=== PATIENT | male | born 1930 | race Caucasian/White ===

== ENCOUNTER 2017-02-17 14:08 | Inpatient (IN) ==
--- NOTE | 2017-02-17 15:38 | Emergency Department Note ---
Arrival - Arrival ED Nursing Triage Note: Sent from Dr Doan office for chest pain and SOB - pt states that he went to see Dr Doan for SOB and cough this am and was sent to ER for futher evaluation Mode of Arrival: Wheelchair Limitations: No Limitations Source: Patient, RN Notes Reviewed <Daryl Fall - Last Filed: 02/17/17 15:40> <Anuj Salazar - Last Filed: 02/17/17 17:12> - Arrival Chief Complaint: Shortness of Breath Stated Complaint: SOB,clammy, chest tightness Time Seen by Provider: 02/17/17 15:27 - History of Present Illness HPI Narrative: Patient is an 86-year-old white male routinely followed by Dr. Doan who is seen today with a two-month history of shortness of breath which is worse over the last 24-48 hours. The patient states she has had some wheezing. He denies any history of cigarette smoking. There is no history of fever. The patient was seen today at Dr. Doan's office and was noted to be somewhat diaphoretic. Patient's cough is nonproductive. He states that he was treated here 4-5 months ago as if he had congestive heart failure. He has noted some swelling in his legs. Patient has some dyspnea on exertion. (Daryl Fall) Allergies/Adverse Reactions: Allergies Allergy/AdvReac Type Severity Reaction Status Date / Time lidocaine Allergy Severe Unknown/Unable Verified 04/15/16 14:17 to obtain Home Medications: Home Medications Medication Instructions Recorded Confirmed Type Digoxin 125 mcg PO QAM 06/10/15 02/17/17 History Irbesartan 150 mg PO QAM 06/10/15 02/17/17 History Simvastatin 80 mg PO BEDTIME 06/10/15 02/17/17 History Zolpidem [Ambien] 5 mg PO BEDTIME PRN 06/10/15 02/17/17 History Rivaroxaban [Xarelto] 15 mg PO DAILY W/BREAKFAST tablet 06/12/15 02/17/17 Rx Silodosin [Rapaflo] 8 mg PO DAILY W/BREAKFAST PRN #0 06/12/15 02/17/17 Rx capsule Aspirin [Ecotrin] 81 mg PO QAM 04/15/16 02/17/17 History Finasteride 5 mg PO QPM 04/15/16 02/17/17 History Citalopram [CeleXA] 20 mg PO QAM 02/17/17 02/17/17 History Furosemide Tab [Lasix Tab] 40 mg PO MOWEFR 02/17/17 02/17/17 History Potassium Chloride Cap/Tab [K Dur] 10 meq PO MOWEFR 02/17/17 02/17/17 History Sotalol [Betapace] 160 mg PO BID 02/17/17 02/17/17 History Review of System - Review of System 12 point system: reviewed and no additional remarkable complaints except as stated - Review of System Constitutional: Present: diaphoresis. Absent: chills, fever Respiratory: Present: cough, wheezing. Absent: respiratory distress Gastrointestinal: Absent: nausea, vomiting <Daryl Fall - Last Filed: 02/17/17 15:40> Medical,Surgical,& Family Hx - Medical History Cardio: History of: Cardiac Dysrhythmia, CHF, CAD, Hypertension, Pacemaker, Cardiovascular Problems Psychological: History of: Anxiety Disorders Neurology: No history of: Cerebrovascular Accident HEENT: History of: HEENT Problems (carcinoma removed off nose years ago) Respiratory: History of: Bronchitis, Pneumonia, Respiratory Problems Genitourinary: History of: Kidney Stones, Problems Gastrointestinal: History of: GERD Musculoskeletal: History of: Degenerative Disk Disease, Musculoskeletal Problems Hematology: History of: Bleeding Problems (anticoagulated ) - Surgical History Cardiac Surgeries: Sugical HX of: Cardiac Catheterization, Cardiac Surgery ( bypass surgery in 2004. At that time he had a left internal mammary to the) Orthopedic Surgeries: Surgical HX of;: Orthopedic Surgery (knee surgery) - Family History Family History: Reports;: Family Cancer (children) - Social History Smoking Status: Never smoker Frequency of Alcohol Use: None Type of Drug Use: None <Daryl Fall - Last Filed: 02/17/17 15:40> Exam <Daryl Fall - Last Filed: 02/17/17 15:40> <Anuj Salazar - Last Filed: 02/17/17 17:12> Vital Signs: Vital Signs Temperature 98.6 F 02/17/17 15:30 Pulse Rate 60 02/17/17 16:00 Respiratory Rate 20 02/17/17 16:00 Blood Pressure 123/66 02/17/17 16:00 O2 Sat by Pulse Oximetry 100 02/17/17 16:00 GENERAL: This is a well-nourished well-developed white male in no apparent distress. VITAL SIGNS: Reviewed HEENT: Head is atraumatic and normocephalic. Pupils are equal round react to light. Extraocular movements are intact. Oropharynx is benign with moist mucous membranes. NECK: Neck is soft and supple without tenderness. There are no masses. There is no lymphadenopathy. LUNGS: End expiratory wheezes in the posterior lung viveros bilaterally but left is worse than right. Chest rises symmetrically. There is no chest wall tenderness. CV: Heart is regular rate and rhythm without murmurs rubs or gallops. ABDOMEN: Abdomen is soft, nontender to palpation. There are no abdominal abnormal masses palpated. There is no organomegaly. Bowel sounds are present and active. SKIN: Skin is cool and moist. No rash. EXTREMITIES: Patient has full range of motion without tenderness. There is 1+ pitting pedal edema. NEUROLOGIC: Awake alert and oriented 4. Cranial nerves II through XII are grossly intact. Motor is 5 over 5 in all extremities bilaterally. (Daryl Fall) Course <Daryl Fall - Last Filed: 02/17/17 15:40> <Anuj Salazar - Last Filed: 02/17/17 17:12> Course Narrative: Care transferred to Dr. Salazar at 1600. (Daryl Fall) Results - EKG EKG results: interpreted by ERMD - Diagnostic Findings Procedure: Chest x-ray: image reviewed by me <Daryl Fall - Last Filed: 02/17/17 15:40> - Labs CBC & BMP: 02/17/17 15:37 02/17/17 15:37 Lab Results: I have reviewed the patients labs <Anuj Salazar - Last Filed: 02/17/17 17:12> - Impressions EKG: Electronic atrial pacemaker with a rate of 64, incomplete right bundle branch block, normal ST-T waves, normal axis. (Daryl Fall) Disposition <Daryl Fall - Last Filed: 02/17/17 15:40> Case discussed with: patient, patient's family Time of Disposition: 17:12 <Anuj Salazar - Last Filed: 02/17/17 17:12> Clinical Impression: Dyspnea, S/P CABG x 3, Chronic anticoagulation, Cough, Hypertension Disposition: Still a Patient Condition: Stable
[2017-02-17] MEDS: ALBUTEROL 2.5 MG/3 ML NEB RESP TX SCH (15:53)
[2017-02-17 15:59] LABS: Basophils % 0.3 % (0.0-0.8); Eosinophils # 0.5 10*3/uL (0.0-0.87); Eosinophils % 4.1 % (0.00-10.9); Hematocrit 39.6 VOL% (42.0-52.0); Hemoglobin 13.5 GM/DL (14.0-18.0); Immature Granulocytes % 0.7 %; Immature Granulocytes Absolute 0.08 #; Lymphocytes # 2.9 10*3/uL (1.4-4.0); Lymphocytes % 26.4 % (21.2-54.2); Mean Corpuscular HGB Conc 34.1 GM/DL (32-36); Mean Corpuscular Hemoglobin 33 PG (27-34); Mean Corpuscular Volume 95.2 FL (87-102); Mean Platelet Volume 9.4 FL (9.6-12.0); Monocytes # 1.3 10*3/uL (0.11-0.8); Monocytes % 11.8 % (1.7-12.7); Neutrophils # 6.2 10*3/uL (1.4-7.4); Neutrophils % 56.7 % (38.7-73.9); Platelet Count 300 T/CUMM (130-400); Red Blood Count 4.16 MC/CUMM (3.8-5.5); Red Cell Distribution Width 12.8 % (9.3-17.3); White Blood Count 10.9 T/CUMM (4-12)
[2017-02-17 16:06] LABS: INR 1.2; PT Patient Result 12.4 SECS; Partial Thromboplastin Time 35.3 SECS (0-40)
[2017-02-17 16:21] LABS: Alanine Aminotransferase 27 U/L (16-61); Albumin 3.3 G/DL (3.4-5.0); Alkaline Phosphatase 76 U/L (45-117); Aspartate Amino Transferase 19 U/L (0-37); Blood Urea Nitrogen 31 MG/DL (7-18); Calcium 8.2 MG/DL (8.5-10.1); Glucose 80 MG/DL (74-106); Magnesium 2.6 MG/DL (1.8-2.4); Osmolality,Calculated 282.5 MOS/KG (273-304); Potassium 4.5 MMOL/L (3.5-5.1); Sodium 139 MMOL/L (136-145); Total Protein 6.3 G/DL (6.4-8.3); Troponin I Only < 0.015 NG/ML (0.00-0.045)
--- NOTE | 2017-02-17 16:31 | EKG Report ---
Stationary ECG Study [facility] ER Test Date: 02/17/2017 2:24:24 PM Pat Name: SARABJIT MONTES Department: Room: Gender: M Director Blood Bank: Jean Sosa : 1930 Requested by: Anuj Salazar Order Number: [id number] Reading MD: ROXY AMBROCIO Intervals Holmes Rate: 64 P: -71 DE: 182 QRS: 56 QRSD: 92 T: 58 QT: 413 QTc: 422 Interpretive Statements ELECTRONIC ATRIAL PACING INCOMPLETE RIGHT BUNDLE BRANCH BLOCK Electronically Signed On 02-18-17 15:26:35 CDT by ROXY AMBROCIO [email or web address]
--- NOTE | 2017-02-17 16:54 | XRay Report ---
Exam: Chest 2 views Date: February 17, 2017 at 4:35 PM Comparison: Chest 2 views April 16, 2016 Reason: Shortness of breath Findings: The cardiac silhouette is upper normal in size, and the patient is status post sternotomy with valve replacement. A cardiac pacing device is in place, and there is prominent calcified plaque at the aortic arch. No focal consolidation, pneumothorax or pleural effusion is identified. No acute osseous process is seen. There are small densities within the right upper abdomen, which are consistent with gallstones. Impression: 1. No acute cardiopulmonary process is identified. 2. Gallstones. PROCEDURE INTERPRETED AT [facility] DEPARTMENT OF RADIOLOGY Final Report Signed by: Dr. Imtiaz Lu
[2017-02-17 17:38] LABS: Apearance,Urine CLEAR (Clear); Bilirubin,Urine Negative (Negative); Blood, Urine Negative (Negative); Glucose,Urine (UA) Negative (Negative); Ketones,Urine Negative (Negative); Mucus,Urine Occasional /LPF (Occasional); Nitrite,Urine Negative (Negative); Protein,Urine Negative; RBC,Urine 2 /HPF (0-4); Squamous Epithelial Cell,Urine Occasional /HPF (0-10); Urine Color Yellow (Yellow); Urine Specific Gravity 1.018 (1.001-1.035); Urine Urobilinogen < 2.0 EU/DL (0.2-1.0); WBC,Urine 1 /HPF (0-6)
--- NOTE | 2017-02-17 17:43 | Hospitalist History & Physical ---
Assessment and Plan (1) Chest pain Status: Acute Assessment and plan: The patient reports an extensive cardiac history. Initial cardiac enzymes were benign at less than 0.015. We will conduct a full cardiac workup; we will obtain serial cardiac enzymes 3. We will also consult cardiology to evaluate during the clinical encounter. Current Visit: Yes (2) Chronic anticoagulation Status: Acute Assessment and plan: The patient is currently anticoagulated with Eliquis for atrial fibrillation. We will continue Eliquis as previously ordered. Current Visit: Yes (3) Dyspnea Status: Acute Assessment and plan: We will start inhaled bronchodilators and intravenous corticosteroids. There is no sign of obvious infection WBCs are 10.9 at the time of admission. We will hold empiric antibiotics for now. Will recheck chest x-ray in a.m. Current Visit: Yes History of Present Illness Chief complaint: Shortness of breath History of present illness: This is a very pleasant 86-year-old male that presented to the ED at [facility] for evaluation of chest pain and shortness of breath. The patient has a medical history significant for: Congestive heart failure, atrial fibrillation, coronary artery disease, hypertension, anxiety, bronchitis , pneumonia, renal calculi, degenerative disc disease, and GERD. She has a surgical history significant for: Cardiac catheterization, coronary artery bypass graft, knee surgery, and pacemaker placement. The patient reports an onset of symptoms 2 months prior to presentation. He reports that the shortness of breath has gradually worsened with time progression, and became very severe over the last 24-48 hours. The patient presented to his primary care physician Dr. Ramirez this morning for evaluation. At the time of evaluation , the patient was noted to be wheezing, diaphoretic, short of breath, and experiencing some chest discomfort. At that time he was advised to present to the ED for further evaluation. In addition the patient reports that he was treated here at [facility] 4-5 months ago symptoms similar in nature and reports that he was treated as though if he had congestive heart failure. Labs were obtained at the time of ED presentation: Hematology panel reported white blood cell count 18.9, hemoglobin at 13.5, hematocrit at 39.6, platelet count at 300. Coagulation panels reported an INR at 1.2. Chemistry panel reported a sodium at 139, potassium of 4.5, chloride at 103, carbon dioxide of 29, anion gap at 11.5, BUN at 31, creatinine at 1 GFR at 75, calculated osmolality 282.5 calcium at 8.2 magnesium at 2.6 total protein at 6.3 albumin at 3.3. BNP was noted at 80 cardiac enzymes were obtained which reported a troponin at less than 0.015. Urinalysis was obtained which was essentially unremarkable. Chest x-ray was obtained which reported no acute cardiopulmonary process however gallstones were noted. After brief discussion with both Dr. Salazar and Dr. Wong, the patient will be admitted to the hospitalist services for continuation of care. Home Medications Medication Instructions Recorded Confirmed Type Digoxin 125 mcg PO QAM 06/10/15 02/17/17 History Irbesartan 150 mg PO QAM 06/10/15 02/17/17 History Simvastatin 80 mg PO BEDTIME 06/10/15 02/17/17 History Zolpidem [Ambien] 5 mg PO BEDTIME PRN 06/10/15 02/17/17 History Rivaroxaban [Xarelto] 15 mg PO DAILY W/BREAKFAST tablet 06/12/15 02/17/17 Rx Silodosin [Rapaflo] 8 mg PO DAILY W/BREAKFAST PRN #0 06/12/15 02/17/17 Rx capsule Aspirin [Ecotrin] 81 mg PO QAM 04/15/16 02/17/17 History Finasteride 5 mg PO QPM 04/15/16 02/17/17 History Citalopram [CeleXA] 20 mg PO QAM 02/17/17 02/17/17 History Furosemide Tab [Lasix Tab] 40 mg PO MOWEFR 02/17/17 02/17/17 History Potassium Chloride Cap/Tab [K Dur] 10 meq PO MOWEFR 02/17/17 02/17/17 History Sotalol [Betapace] 160 mg PO BID 02/17/17 02/17/17 History Allergies Allergy/AdvReac Type Severity Reaction Status Date / Time lidocaine Allergy Severe Unknown/Unable Verified 04/15/16 14:17 to obtain Medical,Surgical,& Family Hx - Medical History Cardio: History of: Cardiac Dysrhythmia, CHF, CAD, Hypertension, Pacemaker, Cardiovascular Problems Psychological: History of: Anxiety Disorders Neurology: No history of: Cerebrovascular Accident HEENT: History of: HEENT Problems (carcinoma removed off nose years ago) Respiratory: History of: Bronchitis, Pneumonia, Respiratory Problems Genitourinary: History of: Kidney Stones, Problems Gastrointestinal: History of: GERD Musculoskeletal: History of: Degenerative Disk Disease, Musculoskeletal Problems Hematology: History of: Bleeding Problems (anticoagulated ) - Surgical History Cardiac Surgeries: Sugical HX of: Cardiac Catheterization, Cardiac Surgery ( bypass surgery in 2004. At that time he had a left internal mammary to the) Orthopedic Surgeries: Surgical HX of;: Orthopedic Surgery (knee surgery) - Family History Family History: Reports;: Family Cancer (children) - Social History Smoking Status: Never smoker Frequency of Alcohol Use: None Type of Drug Use: None 12 point system: reviewed and no additional remarkable complaints except as stated Exam - Constitutional Vitals: Period Temp Pulse Resp BP Sys/Syed Pulse Ox Last 24 Hr 98.6 F-98.6 F 60-69 20-20 122-132/55-66 94-100 General appearance: normal weight, no acute distress - Head Head exam: Present: normal inspection, normocephalic, atraumatic - Eye Eye exam: Present: EOMI. Absent: conjunctival injection Pupils: Present: DENISSE, normal accommodation - ENT ENT exam: Present: normal exam, normal external ear exam, normal oropharynx - Neck Neck exam: Present: normal inspection. Absent: lymphadenopathy, meningismus, thyromegaly - Respiratory Respiratory exam: Present: wheezes (Expiratory wheezes noted). Absent: accessory muscle use, chest wall tenderness, rales, rhonchi - Cardiovascular Cardiovascular exam: Present: regular rate and rhythm. Absent: carotid bruit, diastolic murmur, gallop, JVD, rubs, systolic murmur - GI/Abdominal GI/Abdominal exam: Present: normal bowel sounds, soft. Absent: firm, guarding, mass, tenderness - Extremities Exam Extremities exam: Present: normal capillary refill, edema (+1 pitting edema noted to bilateral lower extremities) - Back Exam Back exam: Present: normal inspection - Neurological Exam Neurological exam: Present: alert, oriented X3, CN II-XII intact - Psychiatric Psychiatric exam: Present: normal affect, normal mood - Skin Skin exam: Present: normal color, warm, dry Results - Labs CBC & BMP: 02/17/17 15:37 02/17/17 15:37 Lab Results: I have reviewed the past 24 hour labs
[2017-02-17] MEDS ORDERED: ACETAMINOPHEN 325 MG TABLET PO PRN (17:51)
[2017-02-17] MEDS ORDERED: DOCUSATE SODIUM 100 MG CAPSULE PO PRN (17:51)
[2017-02-17] MEDS ORDERED: ZALEPLON 5 MG CAPSULE PO PRN (17:51)
[2017-02-17] MEDS ORDERED: ONDANSETRON 4 MG/2 ML VIAL IV PRN (17:51)
[2017-02-17] MEDS ORDERED: ALBUTEROL 2.5 MG/3 ML NEB RESP TX PRN (17:56)
[2017-02-17] MEDS ORDERED: SILODOSIN 8 MG CAPSULE PO PRN (18:36)
[2017-02-17] MEDS ORDERED: methylPREDNISolone SOD SUC 40 MG/1 ML VIAL IV ONE (19:16)
[2017-02-17] MEDS: ALBUTEROL/IPRATROPIUM 3 ML NEB RESP TX SCH (19:19)
[2017-02-17] MEDS ORDERED: FINASTERIDE 5 MG TABLET PO SCH (21:00)
[2017-02-17] MEDS ORDERED: SIMVASTATIN 80 MG TABLET PO SCH (21:00)
[2017-02-17] MEDS: BUDESONIDE/FORMOTEROL 80-4.5 INHALER 6.9 GM INH SCH (21:03)
[2017-02-17] MEDS: SOTALOL 80 MG TABLET PO SCH (21:07)
[2017-02-18] MEDS: ALBUTEROL/IPRATROPIUM 3 ML NEB RESP TX SCH ×2 (01:02→07:56)
[2017-02-18 04:06] LABS: Basophils % 0.1 % (0.0-0.8); Eosinophils % 0.5 % (0.00-10.9); Hematocrit 37.8 VOL% (42.0-52.0); Hemoglobin 12.6 GM/DL (14.0-18.0); Immature Granulocytes % 0.9 %; Immature Granulocytes Absolute 0.07 #; Lymphocytes # 1.3 10*3/uL (1.4-4.0); Lymphocytes % 15.9 % (21.2-54.2); Mean Corpuscular HGB Conc 33.3 GM/DL (32-36); Mean Corpuscular Hemoglobin 32 PG (27-34); Mean Corpuscular Volume 94.5 FL (87-102); Monocytes # 0.2 10*3/uL (0.11-0.8); Monocytes % 1.9 % (1.7-12.7); Neutrophils # 6.5 10*3/uL (1.4-7.4); Neutrophils % 80.7 % (38.7-73.9); Platelet Count 262 T/CUMM (130-400); Red Cell Distribution Width 12.7 % (9.3-17.3); White Blood Count 8.1 T/CUMM (4-12)
[2017-02-18 04:32] LABS: Albumin 3.1 G/DL (3.4-5.0); Bilirubin,Total 0.6 MG/DL (0.2-1.0); Calcium 8.7 MG/DL (8.5-10.1); Magnesium 2.7 MG/DL (1.8-2.4); Osmolality,Calculated 285.5 MOS/KG (273-304); Phosphorous 2.2 MG/DL (2.5-4.9); Potassium 4.5 MMOL/L (3.5-5.1); Total Protein 5.8 G/DL (6.4-8.3)
--- NOTE | 2017-02-18 07:17 | XRay Report ---
Portable chest Date: 02/18/2017 Clinical history: COPD Comparison: 02/18/2017 Technique: Portable AP sitting chest Findings: The heart is at the upper limits normal in size with prior median sternotomy and cardiac valve replacement. Stable left subclavian atrioventricular pacemaker. The lungs are overexpanded with chronic scarring. Possible nipple shadows. Stable mediastinum and osseous structures. Impression: No significant change in the appearance of the chest when compared to previous exam. Possible nipple shadows. PROCEDURE INTERPRETED AT [facility] DEPARTMENT OF RADIOLOGY Final Report Signed by: Dr. Diana Kimball
[2017-02-18] MEDS ORDERED: RIVAROXABAN 15 MG TABLET PO SCH (08:00)
[2017-02-18] MEDS ORDERED: ASPIRIN EC 81 MG TABLET PO SCH (09:00)
[2017-02-18] MEDS ORDERED: IRBESARTAN 150 MG TABLET PO SCH (09:00)
[2017-02-18] MEDS ORDERED: FUROSEMIDE 40 MG TABLET PO SCH (09:00)
[2017-02-18] MEDS ORDERED: DIGOXIN 0.125 MG TABLET PO SCH (09:00)
[2017-02-18] MEDS ORDERED: predniSONE 20 MG TABLET PO SCH (09:00)
[2017-02-18] MEDS ORDERED: CITALOPRAM 20 MG TABLET PO SCH (09:00)
[2017-02-18] MEDS ORDERED: PANTOPRAZOLE 40 MG TABLET PO SCH (09:00)
[2017-02-18] MEDS ORDERED: POTASSIUM CHLORIDE 10 MEQ TABLET PO SCH (09:00)
--- NOTE | 2017-02-18 09:01 | Cardiology Consult Note ---
<Gely Rivera E - Last Filed: 02/18/17 11:27> Assessment and Plan - Time spent with patient Time spent with patient: Greater than 30 minutes (Due to assessment, plan, and documentation.) (1) Dyspnea Status: Acute Assessment and plan: See plan of care listed below. Current Visit: Yes (2) COPD (chronic obstructive pulmonary disease) Status: Chronic Assessment and plan: See plan of care listed below. Current Visit: Yes (3) CAD (coronary artery disease) Status: Chronic Assessment and plan: See plan of care listed below. Current Visit: No Qualifiers: Coronary Disease-Associated Artery/Lesion type: bypass graft (4) Paroxysmal atrial fibrillation Status: Chronic Assessment and plan: See plan of care listed below. Current Visit: Yes (5) Hypertension Status: Chronic Assessment and plan: See plan of care listed below. Current Visit: Yes Qualifiers: Hypertension type: essential hypertension Qualified Code(s): I10 - Essential (primary) hypertension (6) Dyslipidemia Status: Acute Assessment and plan: See plan of care listed below. Current Visit: No (7) Chronic anticoagulation Status: Chronic Assessment and plan: See plan of care listed below. Current Visit: Yes (8) Status post placement of cardiac pacemaker Status: Chronic Assessment and plan: See plan of care listed below. Current Visit: Yes (9) history of carotid bruit Status: Chronic Assessment and plan: See plan of care listed below. Current Visit: Yes History of Present Illness - Data of Consult Patient: known to practice within the last 3 years Consult date: 02/17/17 Requesting Physician: George Sigala Primary care physician: Sai Doan - Consult Narrative Reason for consult: SOB, CP History of present illness: Emt Dispatcher: Dr. Barclay PCP: Dr. Doan Mr. Lew is a 86 year old male with a history of coronary artery disease, paroxysmal atrial fibrillation, COPD, hypertension, hyperlipidemia, chronic anticoagulation. He is status post dual-chamber pacemaker implantation for sick sinus syndrome 03/04/2005 with EOL done by Dr. Webber 01/01/09. He was hospitalized April 15, 2016 with recurrent bronchitis. Echo Doppler April showed ejection fraction 60% with mild LVH, mildly dilated left atrium, aortic valve sclerosis with mild AI, normal RV function, and mild TR with PA pressure 40 with grade 1 diastolic dysfunction and mitral sclerosis. He was referred to the emergency room from Dr. Doan's office yesterday for further evaluation and treatment of shortness of breath. Mr. Lew reports for the past 8-10 months he has had issues with shortness of breath more frequently. He reports he has been being treated for recurrent bronchitis with steroids and antibiotics. He reports he goes to the doctor and receives shots medications and then improves but his symptoms return within 1-2 weeks. He states this seems like it has gone on for the past several months. He reports worsening during the last week with shortness of breath and dyspnea on exertion , frequent cough, and wheezing. He states he has hardly been able to walk from his house to the mailbox and back without becoming extremely dyspneic. He tells me that he coughs all throughout the day and frequently wakes up during the night coughing. He reports he went to Dr. Doan's office yesterday for further evaluation and was told he "was barely moving any air" and needed to go straight to the emergency room. He denies any recent chest pain, chest tightness, chest heaviness, or palpitations. Since arrival he has been given breathing treatments and IV steroids reports he is already feeling much improved. Has had 3 sets of negative troponins and EKG is unremarkable. Chest x-ray on admission shows no acute cardiopulmonary process. No focal consolidation, pneumothorax, or pleural effusion was identified. ASSESSMENT/PLAN: 1. DYSPNEA -suspect this is related to his COPD. He has ruled out for AR but given his history, he would benefit from outpatient stress testing for further cardiac evaluation. Would continue current therapy with Breathing treatments and steroids and set up for outpatient stress test and follow up with Dr. Barclay. 2. COPD -he reports he uses nebulizer treatments daily and sometimes up to 3 times a day. He also reports using inhalers. Pulmonology has been consulted. I suspect his symptoms stem from COPD exacerbation rather than ACS. 3. 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 Blue. At that time he had a CONDON graft to the LAD, vein graft to the diagonal and vein graft to the PDA. 4. PAROXYSMAL ATRIAL FIBRILLATION -currently in sinus rhythm. Continue sotalol , digoxin and monitor. 5. HYPERTENSION -currently well controlled. Continue home medications, monitor and adjust accordingly. 6. HYPERLIPIDEMIA -continue lipid-lowering agent. 7. CHRONIC ANTICOAGULATION -continue Xarelto. 8. S/P DUAL CHAMBER PACEMAKER - He is status post dual-chamber pacemaker implantation for sick sinus syndrome 03/04/2005 with EOL done by Dr. Webber . 9. HISTORY OF CAROTID BRUIT - History of left carotid bruit. Last carotid ultrasound done December 29, 2016 revealed patent ECA bilaterally with 40-59% stenosis in the proximal right internal carotid artery and 1-39% stenosis in the proximal left internal carotid artery. Dr. Harper to follow with further plan and addendum. CC: Corin Zuleta MD - Home Medications and Allergies Home Medications: Home Medications Medication Instructions Recorded Confirmed Type Digoxin 125 mcg PO QAM 06/10/15 02/17/17 History Irbesartan 150 mg PO QAM 06/10/15 02/17/17 History Simvastatin 80 mg PO BEDTIME 06/10/15 02/17/17 History Zolpidem [Ambien] 5 mg PO BEDTIME PRN 06/10/15 02/17/17 History Rivaroxaban [Xarelto] 15 mg PO DAILY W/BREAKFAST tablet 06/12/15 02/17/17 Rx Silodosin [Rapaflo] 8 mg PO DAILY W/BREAKFAST PRN #0 06/12/15 02/17/17 Rx capsule Aspirin [Ecotrin] 81 mg PO QAM 04/15/16 02/17/17 History Finasteride 5 mg PO QPM 04/15/16 02/17/17 History Citalopram [CeleXA] 20 mg PO QAM 02/17/17 02/17/17 History Furosemide Tab [Lasix Tab] 40 mg PO MOWEFR 02/17/17 02/17/17 History Potassium Chloride Cap/Tab [K Dur] 10 meq PO MOWEFR 02/17/17 02/17/17 History Sotalol [Betapace] 160 mg PO BID 02/17/17 02/17/17 History Albuterol/Ipratropium Neb [Duoneb] 3 ml RESP TX RT Q12H #60 vial 02/18/17 Rx Budesonide/Formoterol 80-4.5 2 puff INH BID #1 inhaler 02/18/17 Rx [Symbicort 80-4.5] Montelukast Tab [Singulair Tab] 10 mg PO DAILY #30 tablet 02/18/17 Rx predniSONE TAB [PredniSONE] 10 mg PO DAILY #20 tablet 02/18/17 Rx Allergies/Adverse Reactions: Allergies Allergy/AdvReac Type Severity Reaction Status Date / Time lidocaine Allergy Severe Unknown/Unable Verified 04/15/16 14:17 to obtain Review of systems: - Constitutional: Present: As per HPI. Absent: anorexia, chills, daytime sleepiness, excessive sweating, fever(s), frequent falls, headache(s), increased appetite, lethargy, malaise, night sweats, stops breathing during sleep, weakness, weight gain, weight loss, fatigue. - EENT Eyes: Present: As per HPI. Absent: blurry vision, diplopia, loss of vision Ears: Present: As per HPI. Absent: decreased hearing, ear discharge, ear pain Nose, mouth and throat: Present: As per HPI. Absent: dysphagia, epistaxis, headache(s), hoarseness, lip swelling, nasal congestion, neck mass, neck pain, sinus pressure, sore throat, throat swelling, tongue swelling, vertigo - Cardiovascular: Present: dyspnea, dyspnea on exertion, as per HPI. Absent: chest pain at rest, chest pain with activity, edema, claudication, diaphoresis , radiating jaw, neck or arm pain, lightheadedness, orthopnea, palpitations, PND - Respiratory: Present: dyspnea, dyspnea on exertion, cough, as per HPI. Absent : hemoptysis, wheezing, snoring, pain on inspiration - Gastrointestinal: Present: As per HPI. Absent: abdominal pain, bloating, change in bowel habits, constipation, diarrhea, heartburn, hematemesis, hematochezia, loose stools, melena, nausea, vomiting - Genitourinary: Present: As per HPI. Absent: difficulty urinating, dysuria, flank pain, hematuria, nocturia, urinary frequency, urinary incontinence - Musculoskeletal: Present: As per HPI. Absent: arthralgias, back pain, joint swelling, limited range of motion, muscle cramps, muscle weakness, myalgias - Neurological: Present: As per HPI. Absent: abnormal gait, abnormal speech, behavioral changes, confusion, convulsions, disequilibrium, dizziness, focal weakness, frequent falls, headache(s), memory loss, numbness, paresthesias, radicular pain, syncope, tremor(s) - Psychiatric: Present: As per HPI. Absent: anxiety, confusion, depression, panic attacks - Endocrine: Present: As per HPI. Absent: cold intolerance, fatigue, heat intolerance, polydipsia, polyphagia - Hematologic/Lymphatic: Present: easy bleeding, easy bruising, As per HPI. Absent: lymphadenopathy Medical,Surgical,& Family Hx - Medical History Cardio: History of: Cardiac Dysrhythmia, CHF, CAD, Hypertension, Pacemaker, Cardiovascular Problems Psychological: History of: Anxiety Disorders Neurology: No history of: Cerebrovascular Accident HEENT: History of: HEENT Problems (carcinoma removed off nose years ago) Endocrine: History of: Dyslipidemia Respiratory: History of: Bronchitis, COPD, Pneumonia, Respiratory Problems Genitourinary: History of: Kidney Stones, Problems Gastrointestinal: History of: GERD Musculoskeletal: History of: Degenerative Disk Disease, Musculoskeletal Problems Hematology: History of: Bleeding Problems (anticoagulated ) - Surgical History Cardiac Surgeries: Sugical HX of: Cardiac Catheterization, Cardiac Surgery ( bypass surgery in 2004. At that time he had a left internal mammary to the) Orthopedic Surgeries: Surgical HX of;: Orthopedic Surgery (knee surgery) - Family History Family History: Reports;: Family Cancer (children) - Social History Smoking Status: Never smoker Frequency of Alcohol Use: None Type of Drug Use: None Marital Status: Lives With:: Spouse Functional capacity: independent ambulation Physical Examination Vital Signs Temp Pulse Resp BP Pulse Ox 98.6 F 69 20 122/55 94 L 02/17/17 14:16 02/17/17 14:16 02/17/17 14:16 02/17/17 14:16 02/17/17 14:16 Other: General appearance: Pleasant and cooperative. Normal weight, no acute distress. - Head Head exam: Present: normal inspection, normocephalic, atraumatic. Absent: hematoma, laceration - Eye Eye exam: Present: EOMI. Absent: conjunctival injection, nystagmus, periorbital swelling, scleral icterus, laceration to eyelids Pupils: Present: PERRL. Absent: constricted, dilated, fixed, irregular, unequal - ENT ENT exam: Present: normal exam, normal external ear exam - Neck Neck exam: Present: normal inspection. Absent: lymphadenopathy, meningismus, tenderness, thyromegaly - Respiratory Respiratory exam: Present: clear to auscultation bilaterally. Absent: accessory muscle use, chest wall tenderness - Cardiovascular Cardiovascular exam: Present: regular rate and rhythm. Absent: gallop, JVD, rubs, murmur - GI/Abdominal GI/Abdominal exam: Present: normal bowel sounds, soft. Absent: distended, firm , guarding, hernia, mass, tenderness, rebound. - Extremities Exam Extremities exam: Present: normal inspection, normal capillary refill. Upper extremity pulses 2+. Lower extremity pulses 2+. Absent: calf tenderness, edema -Musculoskeletal Exam Musculoskeletal: Present: No Fluid Collection, No Pain, Normal Range of Motion - Back Exam Back exam: Present: normal inspection. Absent: muscle spasm, vertebral tenderness - Neurological Exam Neurological exam: Present: alert, oriented X3, grossly intact without resting or essential tremor - Psychiatric Psychiatric exam: Present: normal affect, normal mood - Skin Skin exam: Present: normal color, warm, dry, intact. Absent: cyanosis, diaphoretic, rash, urticaria Result/EKG - Labs CBC & BMP: 02/18/17 02:33 02/18/17 02:33 Lab Results: I have reviewed the past 24 hour labs Labs: Laboratory Results - last 24 hr 02/17/17 02/17/17 02/17/17 15:37 15:37 15:37 WBC 10.9 RBC 4.16 Hgb 13.5 L Hct 39.6 L MCV 95.2 MCH 33 MCHC 34.1 RDW 12.8 Plt Count 300 MPV 9.4 L Neut % (Auto) 56.7 Lymph % (Auto) 26.4 [place] % (Auto) 11.8 Eos % (Auto) 4.1 Baso % (Auto) 0.3 Neut # (Auto) 6.2 Lymph # (Auto) 2.9 [place] # (Auto) 1.3 H Eos # (Auto) 0.5 Baso # (Auto) 0.0 Immature Gran % 0.7 Nucleated RBC % 0.0 Immature Gran # 0.08 Nucleated RBCs # 0.00 INR 1.2 PT Patient/Control Mix 12.4 Circ Anticoag PTT 35.3 Sodium 139 Potassium 4.5 Chloride 103 Carbon Dioxide 29 Anion Gap 11.5 BUN 31 H Creatinine 1.00 GFR Calculation 75 BUN/Creatinine Ratio 31.00 H Glucose 80 Calculated Osmolality 282.5 Calcium 8.2 L Phosphorus Magnesium 2.6 H Total Bilirubin 0.40 AST 19 ALT 27 Alkaline Phosphatase 76 Troponin I < 0.015 B-Natriuretic Peptide Total Protein 6.3 L Albumin 3.3 L Globulin 3.0 Albumin/Globulin Ratio 1.1 Urine Color Urine Appearance Urine pH Ur Specific [place] Urine Protein Urine Glucose (UA) Urine Ketones Urine Blood Urine Nitrate Urine Bilirubin Urine Urobilinogen Urine Leukocytes Urine RBC Urine WBC Ur Squamous Epith Cells Urine Mucus Ur Culture Indicated? 02/17/17 02/17/17 02/17/17 15:37 17:31 21:48 WBC RBC Hgb Hct MCV MCH MCHC RDW Plt Count MPV Neut % (Auto) Lymph % (Auto) [place] % (Auto) Eos % (Auto) Baso % (Auto) Neut # (Auto) Lymph # (Auto) [place] # (Auto) Eos # (Auto) Baso # (Auto) Immature Gran % Nucleated RBC % Immature Gran # Nucleated RBCs # INR PT Patient/Control Mix Circ Anticoag PTT Sodium Potassium Chloride Carbon Dioxide Anion Gap BUN Creatinine GFR Calculation BUN/Creatinine Ratio Glucose Calculated Osmolality Calcium Phosphorus Magnesium Total Bilirubin AST ALT Alkaline Phosphatase Troponin I < 0.015 B-Natriuretic Peptide 80 Total Protein Albumin Globulin Albumin/Globulin Ratio Urine Color Yellow Urine Appearance Clear Urine pH 6.0 Ur Specific [place] 1.018 Urine Protein Negative Urine Glucose (UA) Negative Urine Ketones Negative Urine Blood Negative Urine Nitrate Negative Urine Bilirubin Negative Urine Urobilinogen < 2.0 H Urine Leukocytes Negative Urine RBC 2 Urine WBC 1 Ur Squamous Epith Cells Occasional Urine Mucus Occasional Ur Culture Indicated? Not indicated 02/18/17 02/18/17 02/18/17 02:33 02:33 02:33 WBC 8.1 RBC 4.00 Hgb 12.6 L Hct 37.8 L MCV 94.5 MCH 32 MCHC 33.3 RDW 12.7 Plt Count 262 MPV 10.0 Neut % (Auto) 80.7 H Lymph % (Auto) 15.9 L [place] % (Auto) 1.9 Eos % (Auto) 0.5 Baso % (Auto) 0.1 Neut # (Auto) 6.5 Lymph # (Auto) 1.3 L [place] # (Auto) 0.2 Eos # (Auto) 0.0 Baso # (Auto) 0.0 Immature Gran % 0.9 Nucleated RBC % 0.0 Immature Gran # 0.07 Nucleated RBCs # 0.00 INR PT Patient/Control Mix Circ Anticoag PTT Sodium 139 Potassium 4.5 Chloride 104 Carbon Dioxide 27 Anion Gap 12.5 BUN 28 H Creatinine 1.00 GFR Calculation 75 BUN/Creatinine Ratio 28.00 H Glucose 155 H Calculated Osmolality 285.5 Calcium 8.7 Phosphorus 2.2 L Magnesium 2.7 H Total Bilirubin 0.60 AST 14 ALT 23 Alkaline Phosphatase 74 Troponin I < 0.015 B-Natriuretic Peptide Total Protein 5.8 L Albumin 3.1 L Globulin 2.7 Albumin/Globulin Ratio 1.1 Urine Color Urine Appearance Urine pH Ur Specific [place] Urine Protein Urine Glucose (UA) Urine Ketones Urine Blood Urine Nitrate Urine Bilirubin Urine Urobilinogen Urine Leukocytes Urine RBC Urine WBC Ur Squamous Epith Cells Urine Mucus Ur Culture Indicated? - EKG EKG results: interpreted by me, sinus rhythm Quality Measures - VTE Contraindication to Pharmacological VTE Prophylaxis: Already on Theraputic Agent , No Prophylaxis Needed Specialty Discharge - Follow Up or Referrals Follow up with: Delmar Crouch MD [Physician] - 2 Weeks Sai Doan MD [Physician] - 1 Week Fish Barclay MD [Physician] - 03/07/17 2:10 pm (schedule out patient stress test -February 28, at 8:15 a.m nothing to eat or drink after midnight, Hold barbara-blocking agents the morning of stress test.) <Shailesh Harper - Last Filed: 02/18/17 12:02> History of Present Illness - Consult Narrative History of present illness: Mr. Lew is a 86 year old male CC: Corin Zuleta MD Physical Examination Vital Signs Temp Pulse Resp BP Pulse Ox 98.6 F 69 20 122/55 94 L 02/17/17 14:16 02/17/17 14:16 02/17/17 14:16 02/17/17 14:16 02/17/17 14:16 Result/EKG - Labs CBC & BMP: 02/18/17 02:33 02/18/17 02:33 Labs: Laboratory Results - last 24 hr 02/17/17 02/17/17 02/17/17 15:37 15:37 15:37 WBC 10.9 RBC 4.16 Hgb 13.5 L Hct 39.6 L MCV 95.2 MCH 33 MCHC 34.1 RDW 12.8 Plt Count 300 MPV 9.4 L Neut % (Auto) 56.7 Lymph % (Auto) 26.4 [place] % (Auto) 11.8 Eos % (Auto) 4.1 Baso % (Auto) 0.3 Neut # (Auto) 6.2 Lymph # (Auto) 2.9 [place] # (Auto) 1.3 H Eos # (Auto) 0.5 Baso # (Auto) 0.0 Immature Gran % 0.7 Nucleated RBC % 0.0 Immature Gran # 0.08 Nucleated RBCs # 0.00 INR 1.2 PT Patient/Control Mix 12.4 Circ Anticoag PTT 35.3 Sodium 139 Potassium 4.5 Chloride 103 Carbon Dioxide 29 Anion Gap 11.5 BUN 31 H Creatinine 1.00 GFR Calculation 75 BUN/Creatinine Ratio 31.00 H Glucose 80 Calculated Osmolality 282.5 Calcium 8.2 L Phosphorus Magnesium 2.6 H Total Bilirubin 0.40 AST 19 ALT 27 Alkaline Phosphatase 76 Troponin I < 0.015 B-Natriuretic Peptide Total Protein 6.3 L Albumin 3.3 L Globulin 3.0 Albumin/Globulin Ratio 1.1 Urine Color Urine Appearance Urine pH Ur Specific [place] Urine Protein Urine Glucose (UA) Urine Ketones Urine Blood Urine Nitrate Urine Bilirubin Urine Urobilinogen Urine Leukocytes Urine RBC Urine WBC Ur Squamous Epith Cells Urine Mucus Ur Culture Indicated? 02/17/17 02/17/17 02/17/17 15:37 17:31 21:48 WBC RBC Hgb Hct MCV MCH MCHC RDW Plt Count MPV Neut % (Auto) Lymph % (Auto) [place] % (Auto) Eos % (Auto) Baso % (Auto) Neut # (Auto) Lymph # (Auto) [place] # (Auto) Eos # (Auto) Baso # (Auto) Immature Gran % Nucleated RBC % Immature Gran # Nucleated RBCs # INR PT Patient/Control Mix Circ Anticoag PTT Sodium Potassium Chloride Carbon Dioxide Anion Gap BUN Creatinine GFR Calculation BUN/Creatinine Ratio Glucose Calculated Osmolality Calcium Phosphorus Magnesium Total Bilirubin AST ALT Alkaline Phosphatase Troponin I < 0.015 B-Natriuretic Peptide 80 Total Protein Albumin Globulin Albumin/Globulin Ratio Urine Color Yellow Urine Appearance Clear Urine pH 6.0 Ur Specific [place] 1.018 Urine Protein Negative Urine Glucose (UA) Negative Urine Ketones Negative Urine Blood Negative Urine Nitrate Negative Urine Bilirubin Negative Urine Urobilinogen < 2.0 H Urine Leukocytes Negative Urine RBC 2 Urine WBC 1 Ur Squamous Epith Cells Occasional Urine Mucus Occasional Ur Culture Indicated? Not indicated 02/18/17 02/18/17 02/18/17 02:33 02:33 02:33 WBC 8.1 RBC 4.00 Hgb 12.6 L Hct 37.8 L MCV 94.5 MCH 32 MCHC 33.3 RDW 12.7 Plt Count 262 MPV 10.0 Neut % (Auto) 80.7 H Lymph % (Auto) 15.9 L [place] % (Auto) 1.9 Eos % (Auto) 0.5 Baso % (Auto) 0.1 Neut # (Auto) 6.5 Lymph # (Auto) 1.3 L [place] # (Auto) 0.2 Eos # (Auto) 0.0 Baso # (Auto) 0.0 Immature Gran % 0.9 Nucleated RBC % 0.0 Immature Gran # 0.07 Nucleated RBCs # 0.00 INR PT Patient/Control Mix Circ Anticoag PTT Sodium 139 Potassium 4.5 Chloride 104 Carbon Dioxide 27 Anion Gap 12.5 BUN 28 H Creatinine 1.00 GFR Calculation 75 BUN/Creatinine Ratio 28.00 H Glucose 155 H Calculated Osmolality 285.5 Calcium 8.7 Phosphorus 2.2 L Magnesium 2.7 H Total Bilirubin 0.60 AST 14 ALT 23 Alkaline Phosphatase 74 Troponin I < 0.015 B-Natriuretic Peptide Total Protein 5.8 L Albumin 3.1 L Globulin 2.7 Albumin/Globulin Ratio 1.1 Urine Color Urine Appearance Urine pH Ur Specific [place] Urine Protein Urine Glucose (UA) Urine Ketones Urine Blood Urine Nitrate Urine Bilirubin Urine Urobilinogen Urine Leukocytes Urine RBC Urine WBC Ur Squamous Epith Cells Urine Mucus Ur Culture Indicated?
[2017-02-18] MEDS: SOTALOL 80 MG TABLET PO SCH (09:27)
[2017-02-18] MEDS: BUDESONIDE/FORMOTEROL 80-4.5 INHALER 6.9 GM INH SCH (09:29)
--- NOTE | 2017-02-18 09:47 | Pulmonology Consult Note ---
History of Present Illness Chief complaint: Asthma. Acute exacerbation of COPD. History of present illness: Mr. Lew is a 86 year old white male patient of Dr. Ted Ramirez. In the distant past the patient is seen Dr. melany Crouch. I been asked to see this patient in pulmonary consultation. 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 Clifton Hernandez nurse practitioner was present. This patient says that he does have a long history of recurrent bronchitis. He says that usually when his treated everything works out fine. About [address] Doan treated with antibiotics and steroids and the patient did just fine until he finished his steroids and then he began to get more more short of breath with increased wheezing and he had coughing. He says his sputum was mainly clear. He has significant dyspnea on exertion and came to the emergency room and was subsequently admitted. Since admission the patient feels like he is a good bit better with the treatment he has had and he is wondering when he can go home. Allergies. Lidocaine. Home medicines. See below Past history. Probable asthma and probable COPD. Cardiac pacer secondary to cardiac arrhythmia. 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 High blood pressure. Past history of anxiety disorder. History of kidney stones. Past history of gastroesophageal reflux which patient denied on my interview. Degenerative disc disease. Coronary artery bypass surgery was in 2004. He has had a history of knee surgery. He denies any history of deep venous thrombophlebitis. Family history. Positive for high blood pressure and heart disease. There is also a family history of an unknown type of cancer. Social history. Patient never smoked. He does not use alcohol. 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 Chest x-ray. 02/17/2017 and 02/18/2017. Very mild cardiomegaly and a small apical fat pad. Pulmonary arteries are normal. There are benign calcifications both hilar areas sternal wires are present. There is calcification of the aortic knob. There is an area of calcification in the lateral right lung adjacent to the superior hilum. This looks like a collection of punctate calcifications are probably represents old infection. There is also an area of scarring in the lingula that appears to be benign. There is some hyperinflation of the lung viveros. I do not see any of the usual hallmarks of asbestosis. Cardiac pacer is in place. I do not see any bony abnormalities. Microbiology. Nothing reported. Lab. Admit white count was 10,900 with 57 segs 26 lymphs 12 monos. H&H 13.5/ 39.6 with normal indices and red blood cell distribution with platelet count was 300,000 with a normal MPV. INR is 1.2. Electrolytes are normal. Glucoses are normal. Creatinine is 1.0 and BUN is 28. Liver function tests are normal cardiac enzymes are normal total protein and albumin are low at 5.8 and 3.1 respectively urinalysis is normal. Physical exam. Vital signs. See below. Afebrile Pupils irises sclera conjunctiva eyelids are normal. Face is symmetrical. There is no swelling of the lips or tongue. Neck. Symmetrical. Thyroid was not palpated Attics. No submandibular cervical supraclavicular or epitrochlear adenopathy. Chest. Mildly hyperinflated with mild to moderate prolongation of expiration there is slight congestion in the trachea and the large airways. I do not hear any peripheral wheezes. No chest wall tenderness. Heart. No gallop Abdomen. Nontender. Positive bowel sounds. No organs were palpated. Extremities. No edema. No evidence of deep venous thrombophlebitis. No clubbing Musculoskeletal. Age-appropriate loss normal curvature cervical thoracic and lumbar spine Neuro. Cranial nerves are intact with mild decreased hearing acuity bilaterally. Long track motor function was intact. Sensory exam was not done. Gait was not tested. Skin of the face and hand showed no cancerous infectious lesions. No other areas of skin were examined. The remainder the physical exam is noncontributory and negative. Impression 1. Probable COPD from unknown causes and superimposed asthma. 2. Acute exacerbation of COPD and asthma. 3. History is that of asbestos exposure. No chest x-ray evidence of asbestosis. 4. Arteriosclerotic heart disease. Coronary artery bypass grafts. 5. See past history Plan. 1. Continue home medicines 2. Patient has a nebulizer. He should use duo nebs 2-4 times a day 3. Symbicort. 2 puffs twice a day. Take after nebulizer. 4. Start Singulair 10 mg daily 5. When this patient goes home I would put him on prednisone 10 mg daily for 14 days then 10 mg every other day for 14 doses. 6. Referred patient back to Dr. Miguel Matias. 7. I have discussed the case with Dr. Ocasio. We have coordinated our care. I will sign off. Reconsult if needed. Home Medications Medication Instructions Recorded Confirmed Type Digoxin 125 mcg PO QAM 06/10/15 02/17/17 History Irbesartan 150 mg PO QAM 06/10/15 02/17/17 History Simvastatin 80 mg PO BEDTIME 06/10/15 02/17/17 History Zolpidem [Ambien] 5 mg PO BEDTIME PRN 06/10/15 02/17/17 History Rivaroxaban [Xarelto] 15 mg PO DAILY W/BREAKFAST tablet 06/12/15 02/17/17 Rx Silodosin [Rapaflo] 8 mg PO DAILY W/BREAKFAST PRN #0 06/12/15 02/17/17 Rx capsule Aspirin [Ecotrin] 81 mg PO QAM 04/15/16 02/17/17 History Finasteride 5 mg PO QPM 04/15/16 02/17/17 History Citalopram [CeleXA] 20 mg PO QAM 02/17/17 02/17/17 History Furosemide Tab [Lasix Tab] 40 mg PO MOWEFR 02/17/17 02/17/17 History Potassium Chloride Cap/Tab [K Dur] 10 meq PO MOWEFR 02/17/17 02/17/17 History Sotalol [Betapace] 160 mg PO BID 02/17/17 02/17/17 History Allergies Allergy/AdvReac Type Severity Reaction Status Date / Time lidocaine Allergy Severe Unknown/Unable Verified 04/15/16 14:17 to obtain Exam (Pulmonay) H&P - Constitutional Vitals: Period Temp Pulse Resp BP Sys/Syed Pulse Ox Last 24 Hr 97.5 F-98.8 F 59-78 15-21 111-174/44-87 93-100 Medical,Surgical,& Family Hx - Medical History Cardio: History of: Cardiac Dysrhythmia, CHF, CAD, Hypertension, Pacemaker, Cardiovascular Problems Psychological: History of: Anxiety Disorders Neurology: No history of: Cerebrovascular Accident HEENT: History of: HEENT Problems (carcinoma removed off nose years ago) Respiratory: History of: Bronchitis, Pneumonia, Respiratory Problems Genitourinary: History of: Kidney Stones, Problems Gastrointestinal: History of: GERD Musculoskeletal: History of: Degenerative Disk Disease, Musculoskeletal Problems Hematology: History of: Bleeding Problems (anticoagulated ) - Surgical History Cardiac Surgeries: Sugical HX of: Cardiac Catheterization, Cardiac Surgery ( bypass surgery in 2004. At that time he had a left internal mammary to the) Orthopedic Surgeries: Surgical HX of;: Orthopedic Surgery (knee surgery) - Family History Family History: Reports;: Family Cancer (children) - Social History Smoking Status: Never smoker Frequency of Alcohol Use: None Type of Drug Use: None Results - Labs CBC & BMP: 02/18/17 02:33 02/18/17 02:33 Quality Measures - VTE Contraindication to Pharmacological VTE Prophylaxis: Already on Theraputic Agent , No Prophylaxis Needed
[2017-02-18] MEDS ORDERED: MONTELUKAST 10 MG TABLET PO SCH (10:00)
--- NOTE | 2017-02-18 10:33 | Discharge Summary ---
<Corin Zuleta - Last Filed: 02/18/17 13:33> Hospital Course - Hospital Course Hospital Course: Mr. Lew is an 86-year-old male with history of congestive heart failure, A. fib, CAD, hypertension, anxiety, bronchitis, DDD, and GERD admitted by hospitalist on 02/17/2017 with chest pain and dyspnea. Cardiology was consulted and recommended outpatient exercise myocardial scan next week. He will follow- up with Dr. Barclay 1 week after stress test. Pulmonary was also consulted and he recommended patient increasing his duo nebs and adding Symbicort and Singulair. He is also recommending prednisone on discharge. Patient is doing better today his breathing is improved he is reached maximal heart [facility] benefit. He will be discharged home with follow-up with Dr. Ramirez his primary care physician. Patient's case was coordinated with Dr. Zuleta hospitalist, cardiology, and pulmonary, along with patient and family. Care coordination, chart review, and discharge paperwork all took approximately 32 minutes. Specialty Discharge - Follow Up or Referrals Follow up with: Fish Barclay MD [Physician] - 03/07/17 2:10 pm (schedule out patient stress test -February 28, at 8:15 a.m nothing to eat or drink after midnight, Hold barbara-blocking agents the morning of stress test.) Discharge Plan - Discharge Data Disposition: Disch To Home/Self Care Condition at Discharge: Stable - Discharge Medications New Budesonide/Formoterol 80-4.5 [Symbicort 80-4.5] 2 puff INH BID #1 inhaler Montelukast Tab [Singulair Tab] 10 mg PO DAILY #30 tablet predniSONE TAB [PredniSONE] 10 mg PO DAILY #20 tablet Albuterol/Ipratropium Neb [Duoneb] 3 ml RESP TX RT Q12H #60 vial Continue Zolpidem [Ambien] 5 mg PO BEDTIME PRN PRN Reason: Insomnia Simvastatin 80 mg PO BEDTIME Irbesartan 150 mg PO QAM Digoxin 125 mcg PO QAM Silodosin [Rapaflo] 8 mg PO DAILY W/BREAKFAST PRN #0 capsule PRN Reason: URINE RETENTION Rivaroxaban [Xarelto] 15 mg PO DAILY W/BREAKFAST tablet Aspirin [Ecotrin] 81 mg PO QAM Finasteride 5 mg PO QPM Furosemide Tab [Lasix Tab] 40 mg PO MOWEFR Sotalol [Betapace] 160 mg PO BID Citalopram [CeleXA] 20 mg PO QAM Potassium Chloride Cap/Tab [K Dur] 10 meq PO MOWEFR - Follow Up or Referral Follow Up: Fish Barclay MD [Physician] - 03/07/17 2:10 pm (schedule out patient stress test -February 28, at 8:15 a.m nothing to eat or drink after midnight, Hold barbara-blocking agents the morning of stress test.) Sai Doan MD [Physician] - 2 Weeks - Forms/Instructions Instructions: Chest Pain (DC), Dyspnea (GEN) Exam - Constitutional Vitals: Period Temp Pulse Resp BP Sys/Syed Pulse Ox Last 24 Hr 97.5 F-98.8 F 59-94 15-21 111-174/44-87 93-100 Discharge Results Procedures and tests throughout hospitalization: Pending Orders 02/17/17 15:46 Blood Culture Stat Labs on day of discharge: Labs from last 24 hours 02/18/17 02/18/17 02/18/17 02:33 02:33 02:33 WBC 8.1 RBC 4.00 Hgb 12.6 L Hct 37.8 L MCV 94.5 MCH 32 MCHC 33.3 RDW 12.7 Plt Count 262 MPV 10.0 Neut % (Auto) 80.7 H Lymph % (Auto) 15.9 L [place] % (Auto) 1.9 Eos % (Auto) 0.5 Baso % (Auto) 0.1 Neut # (Auto) 6.5 Lymph # (Auto) 1.3 L [place] # (Auto) 0.2 Eos # (Auto) 0.0 Baso # (Auto) 0.0 Immature Gran % 0.9 Nucleated RBC % 0.0 Immature Gran # 0.07 Nucleated RBCs # 0.00 Sodium 139 Potassium 4.5 Chloride 104 Carbon Dioxide 27 Anion Gap 12.5 BUN 28 H Creatinine 1.00 GFR Calculation 75 BUN/Creatinine Ratio 28.00 H Glucose 155 H Calculated Osmolality 285.5 Calcium 8.7 Phosphorus 2.2 L Magnesium 2.7 H Total Bilirubin 0.60 AST 14 ALT 23 Alkaline Phosphatase 74 Troponin I < 0.015 B-Natriuretic Peptide Total Protein 5.8 L Albumin 3.1 L Globulin 2.7 Albumin/Globulin Ratio 1.1 Urine Color Urine Appearance Urine pH Ur Specific Hines Urine Protein Urine Glucose (UA) Urine Ketones Urine Blood Urine Nitrate Urine Bilirubin Urine Urobilinogen Urine Leukocytes Urine RBC Urine WBC Ur Squamous Epith Cells Urine Mucus Ur Culture Indicated? 02/17/17 02/17/17 02/17/17 21:48 17:31 15:37 WBC RBC Hgb Hct MCV MCH MCHC RDW Plt Count MPV Neut % (Auto) Lymph % (Auto) [place] % (Auto) Eos % (Auto) Baso % (Auto) Neut # (Auto) Lymph # (Auto) [place] # (Auto) Eos # (Auto) Baso # (Auto) Immature Gran % Nucleated RBC % Immature Gran # Nucleated RBCs # Sodium Potassium Chloride Carbon Dioxide Anion Gap BUN Creatinine GFR Calculation BUN/Creatinine Ratio Glucose Calculated Osmolality Calcium Phosphorus Magnesium Total Bilirubin AST ALT Alkaline Phosphatase Troponin I < 0.015 B-Natriuretic Peptide 80 Total Protein Albumin Globulin Albumin/Globulin Ratio Urine Color Yellow Urine Appearance Clear Urine pH 6.0 Ur Specific Hines 1.018 Urine Protein Negative Urine Glucose (UA) Negative Urine Ketones Negative Urine Blood Negative Urine Nitrate Negative Urine Bilirubin Negative Urine Urobilinogen < 2.0 H Urine Leukocytes Negative Urine RBC 2 Urine WBC 1 Ur Squamous Epith Cells Occasional Urine Mucus Occasional Ur Culture Indicated? Not indicated 02/17/17 15:37 WBC RBC Hgb Hct MCV MCH MCHC RDW Plt Count MPV Neut % (Auto) Lymph % (Auto) [place] % (Auto) Eos % (Auto) Baso % (Auto) Neut # (Auto) Lymph # (Auto) [place] # (Auto) Eos # (Auto) Baso # (Auto) Immature Gran % Nucleated RBC % Immature Gran # Nucleated RBCs # Sodium 139 Potassium 4.5 Chloride 103 Carbon Dioxide 29 Anion Gap 11.5 BUN 31 H Creatinine 1.00 GFR Calculation 75 BUN/Creatinine Ratio 31.00 H Glucose 80 Calculated Osmolality 282.5 Calcium 8.2 L Phosphorus Magnesium 2.6 H Total Bilirubin 0.40 AST 19 ALT 27 Alkaline Phosphatase 76 Troponin I < 0.015 B-Natriuretic Peptide Total Protein 6.3 L Albumin 3.3 L Globulin 3.0 Albumin/Globulin Ratio 1.1 Urine Color Urine Appearance Urine pH Ur Specific Hines Urine Protein Urine Glucose (UA) Urine Ketones Urine Blood Urine Nitrate Urine Bilirubin Urine Urobilinogen Urine Leukocytes Urine RBC Urine WBC Ur Squamous Epith Cells Urine Mucus Ur Culture Indicated? Preliminary micro results at discharge 02/17/17 15:46 Blood Culture - Preliminary Blood No growth at 1 day 02/17/17 15:46 Blood Culture - Preliminary Blood No growth at 1 day DS: Provider Date of admission: 02/17/17 17:26 Primary care physician: . No PCP Attending physician on admission: Mikey Harding MD Consults: 02/17/17 17:49 Consult to Physician [CONS] Routine Comment: Consulting Provider: Shailesh Harper When should Consulting Provider be notified: In am 02/17/17 17:50 Consult to Physician [CONS] Routine Comment: Consulting Provider: Luther Rodrigues When should Consulting Provider be notified: In am Person Notified: Merle Date Notified: 02/18/17 Time Notified: 08:40 02/17/17 18:36 Consult to Case Mgmt/Social Srvs [CONS] Routine Reason for Case Mgmt/Social Srvs: Rehab Other Discharging clinician: Corin Zuleta MD <Amada Mason - Last Filed: 02/18/17 16:24> Hospital Course - Time spent with patient Time with patient DS: Greater than 30 minutes Diagnosis - Discharge Diagnosis (1) Dyspnea Status: Resolved (2) Chest pain Status: Resolved Discharge Plan - Discharge Data Activity: resume usual activities as tolerated Contact your physician if you experience:: Shortness of breath Exam - Constitutional Exam: A 86-year-old male, no acute distress Chest clear CV regular rate and rhythm Abdomen soft nontender Extremities no edema DS: Provider Expected date of discharge: 02/18/17
[2017-02-18 12:22] VITALS: BP 142/65
--- NOTE | 2017-02-22 07:20 | Physician Query Form ---
CLICK EDIT DOCUMENT TO SELECT QUERY ANSWER --> OK --> SIGN Merle Salazar RN, CCDS Certified Clinical Gi Technician W) [phone] (f) [phone] [email or web address] PROVIDERS: Make your selection(s) from the choices in EACH section by typing an "x" and enter comments in the comment section. Please use your independent medical judgment in providing your response. This request does not imply that any particular answer is desired or expected. CLINICAL INDICATORS: (Providers should not edit this section) The medical record indicates that the patient was admitted with COPD exacerbation, Asthma, "End expiratory wheezes in the posterior lung viveros bilaterally but left is worse than right" and the patient was treated with Symbicort/ nebulizer/Proventil/ DuoNeb. Based on documentation of Asthma, can you please provide further specificity regarding the diagnosis? ( ) Mild intermittent extrinsic asthma with acute exacerbation ( ) Mild persistent extrinsic asthma with acute exacerbation ( ) Moderate persistent extrinsic asthma with acute exacerbation ( ) Severe persistent extrinsic asthma with acute exacerbation ( ) Mild intermittent extrinsic asthma with status asthmaticus ( ) Mild persistent extrinsic asthma with status asthmaticus ( ) Moderate persistent extrinsic asthma with status asthmaticus ( ) Severe intermittent extrinsic asthma with status asthmaticus ( ) Other, please specify: ( X) Clinically unable to determine COMMENTS: PLEASE ALSO DOCUMENT RESPONSE IN PROGRESS NOTES AND/OR DISCHARGE SUMMARY Use of terms such as suspected, likely, or probable (associated with a specific diagnosis that is being evaluated, monitored, or treated as if it exists) are acceptable and can be restated in the discharge summary if not ruled out. MTDD
== END 2017-02-18 14:11 | disposition home or self-care (01) | DRG 192 ==
LOC: N.ED 14:08 → N.EDINP 17:26 → SUATTDRO 17:26 → N.TELEN 18:25
PROVIDERS: ADMIT Internal Medicine Infectious Disease; ATTEND Internal Medicine

== ENCOUNTER 2019-06-07 14:52 | Inpatient (IN) ==
[2019-06-07] MEDS ORDERED: PANTOPRAZOLE 40 MG VIAL IV STA (16:51)
[2019-06-07] MEDS ORDERED: SODIUM CHLORIDE 0.9% 500 ML IV STA (16:51)
[2019-06-07 17:10] LABS: Basophils % 0.2 % (0.0-0.8); Eosinophils # 0.4 10*3/uL (0.0-0.87); Eosinophils % 3.5 % (0.00-10.9); Hemoglobin 12.8 GM/DL (14.0-18.0); Immature Granulocytes % 0.5 %; Immature Granulocytes Absolute 0.05 #; Lymphocytes # 3.2 10*3/uL (1.4-4.0); Lymphocytes % 29.6 % (21.2-54.2); Mean Corpuscular Volume 99.5 FL (87-102); Mean Platelet Volume 9.7 FL (9.6-12.0); Monocytes % 10.9 % (1.7-12.7); Neutrophils % 55.3 % (38.7-73.9); Platelet Count 301 T/CUMM (130-400); Red Blood Count 4.02 MC/CUMM (3.8-5.5); Red Cell Distribution Width 13.2 % (9.3-17.3); White Blood Count 10.7 T/CUMM (4-12)
[2019-06-07 17:26] LABS: INR 1.1; Partial Thromboplastin Time 31.5 SECS (20.8-36.0)
[2019-06-07 17:29] LABS: Alanine Aminotransferase 22 U/L (16-61); Albumin 3.3 G/DL (3.4-5.0); Alkaline Phosphatase 92 U/L (45-117); Aspartate Amino Transferase 16 U/L (0-37); Bilirubin,Total < 0.39 MG/DL (0.2-1.0); Blood Urea Nitrogen 27 MG/DL (7-18); Calcium 8.6 MG/DL (8.5-10.1); Estimated Glom Filtration Rate 53 ML/MIN; Glucose 88 MG/DL (74-106); Osmolality,Calculated 286.1 MOS/KG (273-304); Total Protein 7.5 G/DL (6.4-8.3)
[2019-06-07 17:30] LABS: Troponin I < 0.015 NG/ML (0.00-0.045)
[2019-06-07 17:41] LABS: Apearance,Urine CLEAR (Clear); Bilirubin,Urine Negative (Negative); Blood, Urine Negative (Negative); Glucose,Urine (UA) Negative (Negative); Hyaline Casts,Urine 1 /LPF (0-3); Ketones,Urine Negative (Negative); Mucus,Urine Occasional /LPF (Occasional); Nitrite,Urine Negative (Negative); Protein,Urine Negative; RBC,Urine 4 /HPF (0-4); Urine Color Yellow (Yellow); Urine Specific Gravity 1.021 (1.001-1.035); Urine Urobilinogen < 2.0 EU/DL (0.2-1.0); WBC,Urine 1 /HPF (0-6)
[2019-06-07] MEDS ORDERED: ACETAMINOPHEN 325 MG TABLET PO PRN (18:16)
[2019-06-07] MEDS ORDERED: SODIUM CHLORIDE 0.9% 1,000 ML IV SCH (18:30)
[2019-06-07] MEDS ORDERED: MAGNESIUM CITRATE 300 ML BOTTLE PO ONE (21:00)
[2019-06-07] MEDS ORDERED: BISACODYL 5 MG TABLET PO SCH (23:00)
[2019-06-07] MEDS ORDERED: POLYETHYLENE GLYCOL POWDER 255 GM BOTTLE PO ONE (23:30)
[2019-06-08 01:13] LABS: Basophils % 0.1 % (0.0-0.8); Eosinophils # 0.1 10*3/uL (0.0-0.87); Eosinophils % 1.2 % (0.00-10.9); Hematocrit 29.4 VOL% (42.0-52.0); Hemoglobin 9.4 GM/DL (14.0-18.0); Immature Granulocytes % 0.4 %; Immature Granulocytes Absolute 0.05 #; Lymphocytes # 2.7 10*3/uL (1.4-4.0); Lymphocytes % 23.6 % (21.2-54.2); Mean Corpuscular Volume 99.7 FL (87-102); Mean Platelet Volume 9.9 FL (9.6-12.0); Monocytes % 8.4 % (1.7-12.7); Neutrophils % 66.3 % (38.7-73.9); Platelet Count 255 T/CUMM (130-400); Red Blood Count 2.95 MC/CUMM (3.8-5.5); Red Cell Distribution Width 13.2 % (9.3-17.3); White Blood Count 11.4 T/CUMM (4-12)
[2019-06-08] MEDS ORDERED: cycloSPORINE OPH EMUL 1 VIAL BOTH EYES PRN (09:30)
[2019-06-08] MEDS ORDERED: ZALEPLON 5 MG CAPSULE PO PRN (09:30)
[2019-06-08] MEDS ORDERED: ALBUTEROL/IPRATROPIUM 3 ML NEB RESP TX PRN (09:33)
[2019-06-08] MEDS: FUROSEMIDE 40 MG TABLET PO SCH (10:28)
[2019-06-08] MEDS: FLUOROMETHOLONE 0.1% OPH SUSP 5 ML BOTTLE BOTH EYES SCH ×2 (15:15→21:12)
[2019-06-08] MEDS: SIMVASTATIN 80 MG TABLET PO SCH (21:12)
[2019-06-08] MEDS: SOTALOL 80 MG TABLET PO SCH (21:12)
[2019-06-09] MEDS ORDERED: Fluticasone Furoate-Vilanterol [Breo Ellipta] 1 PUFF INH SCH (09:00)
[2019-06-09] MEDS: DIGOXIN 0.125 MG TABLET PO SCH (09:45)
[2019-06-09] MEDS: MONTELUKAST 10 MG TABLET PO SCH (09:45)
[2019-06-09] MEDS: CITALOPRAM 20 MG TABLET PO SCH (09:45)
[2019-06-09] MEDS: SOTALOL 80 MG TABLET PO SCH ×2 (09:48→20:45)
[2019-06-09] MEDS: LOSARTAN 50 MG TABLET PO SCH (09:48)
[2019-06-09] MEDS: FLUOROMETHOLONE 0.1% OPH SUSP 5 ML BOTTLE BOTH EYES SCH ×3 (09:48→20:45)
[2019-06-09] MEDS: FINASTERIDE 5 MG TABLET PO SCH (09:48)
[2019-06-09] MEDS: SIMVASTATIN 80 MG TABLET PO SCH (20:46)
[2019-06-09] MEDS ORDERED: CALCIUM CARBONATE CHEW 500 MG TABLET PO ONE (22:05)
[2019-06-09] MEDS: PANTOPRAZOLE 40 MG TABLET PO SCH (22:21)
[2019-06-10] MEDS: PANTOPRAZOLE 40 MG TABLET PO SCH ×2 (08:53→21:51)
[2019-06-10] MEDS: BISACODYL 5 MG TABLET PO SCH ×2 (08:53→14:40)
[2019-06-10] MEDS: CITALOPRAM 20 MG TABLET PO SCH (08:54)
[2019-06-10] MEDS: LOSARTAN 50 MG TABLET PO SCH (08:54)
[2019-06-10] MEDS: DIGOXIN 0.125 MG TABLET PO SCH (08:58)
[2019-06-10] MEDS: SOTALOL 80 MG TABLET PO SCH ×2 (08:58→21:51)
[2019-06-10] MEDS: FINASTERIDE 5 MG TABLET PO SCH (08:59)
[2019-06-10] MEDS: MONTELUKAST 10 MG TABLET PO SCH (08:59)
[2019-06-10] MEDS: FLUOROMETHOLONE 0.1% OPH SUSP 5 ML BOTTLE BOTH EYES SCH ×3 (09:01→21:51)
[2019-06-10 10:56] LABS: Basophils % 0.2 % (0.0-0.8); Eosinophils # 0.2 10*3/uL (0.0-0.87); Eosinophils % 1.5 % (0.00-10.9); Hematocrit 27.4 VOL% (42.0-52.0); Immature Granulocytes % 0.3 %; Immature Granulocytes Absolute 0.04 #; Lymphocytes # 3.6 10*3/uL (1.4-4.0); Mean Corpuscular HGB Conc 32.8 GM/DL (32-36); Mean Corpuscular Volume 98.9 FL (87-102); Mean Platelet Volume 10.2 FL (9.6-12.0); Monocytes % 11.7 % (1.7-12.7); Neutrophils % 58.3 % (38.7-73.9); Platelet Count 277 T/CUMM (130-400); Red Blood Count 2.77 MC/CUMM (3.8-5.5); Red Cell Distribution Width 13.2 % (9.3-17.3); White Blood Count 12.9 T/CUMM (4-12)
[2019-06-10 11:12] LABS: Calcium 8.2 MG/DL (8.5-10.1); Osmolality,Calculated 285.3 MOS/KG (273-304)
[2019-06-10] MEDS ORDERED: POLYETHYLENE GLYCOL POWDER 255 GM BOTTLE PO ONE (18:00)
[2019-06-10] MEDS ORDERED: MAGNESIUM CITRATE 300 ML BOTTLE PO ONE (21:00)
[2019-06-10] MEDS: SIMVASTATIN 80 MG TABLET PO SCH (21:51)
[2019-06-11] MEDS: BISACODYL 5 MG TABLET PO SCH (01:30)
[2019-06-11 06:06] LABS: Hematocrit 25.6 VOL% (42.0-52.0); Hemoglobin 8.3 GM/DL (14.0-18.0)
[2019-06-11] MEDS ORDERED: ePHEDrine 50 MG/ML AMP ONE (09:01)
[2019-06-11] MEDS: MONTELUKAST 10 MG TABLET PO SCH (09:53)
[2019-06-11] MEDS: FINASTERIDE 5 MG TABLET PO SCH (09:53)
[2019-06-11] MEDS: FUROSEMIDE 40 MG TABLET PO SCH (09:53)
[2019-06-11] MEDS: LOSARTAN 50 MG TABLET PO SCH (09:53)
[2019-06-11] MEDS: CITALOPRAM 20 MG TABLET PO SCH (09:53)
[2019-06-11] MEDS: SOTALOL 80 MG TABLET PO SCH (09:53)
[2019-06-11] MEDS: DIGOXIN 0.125 MG TABLET PO SCH (09:53)
[2019-06-11] MEDS: PANTOPRAZOLE 40 MG TABLET PO SCH (09:54)
[2019-06-11] MEDS: FLUOROMETHOLONE 0.1% OPH SUSP 5 ML BOTTLE BOTH EYES SCH ×2 (09:55→14:39)
[2019-06-11] MEDS ORDERED: LIDOCAINE 100 MG/5 ML SYRINGE ONE (10:00)
[2019-06-11] MEDS ORDERED: PROPOFOL 200 MG/20 ML VIAL IV ONE (10:00)
[2019-06-11] MEDS ORDERED: PHENYLEPHRINE 1 MG/10 ML SYRINGE IV ONE (10:00)
[2019-06-11 11:36] VITALS: BP 114/54
== END 2019-06-11 15:19 | disposition home or self-care (01) | DRG 378 ==
LOC: N.ED 14:52 → N.EDINP 18:16 → SUATTDRO 18:16 → N.5E 19:13
PROVIDERS: ADMIT Internal Medicine Cardiovascular Disease; ATTEND Internal Medicine